=== PATIENT | female | born 1970 | race Caucasian/White ===

== ENCOUNTER → 2018-07-12 19:06 | Outpatient (CLI) | payer OTHER, MEDICAID, SELFPAY ==
--- NOTE | 2018-07-12 19:10 | DI.MRI.S_ITS ---
PROCEDURE: MR LUMBAR SPINE WO CON INDICATIONS: LOW BACK PAIN TECHNIQUE: Noncontrast sagittal T1 spin echo and T2 fast echo, sagittal STIR, axial T1 and T2 fast spin echo through the lumbar spine. In cases with scoliosis, additional coronal T2 fast spin echo may be performed. COMPARISON: [facility], MR, L-SPINE WITHOUT CONTRAST, 06/08/2017, 14:14. [facility], MR, L-SPINE WITHOUT CONTRAST, 04/07/2016, 13:03. FINDINGS: Image quality: Excellent. Alignment and Curvature: There is a 26? convex leftward bony malalignment, previously present. Bone Marrow: Marrow is of normal overall signal. No acute vertebral body compression fractures. What appears to be a small anterior superior endplate chronic compression fracture is again seen, with stable appearing 37% anterior height reduction at that site when compared to the level immediately below. Inferior tilt of the endplate also is associated, also stable over time. Spinal Cord: Conus medullaris terminates at the L1 level. Visualized cord demonstrates normal signal and size. Paraspinous Soft Tissues: No paravertebral masses. L1-L2: Normal appearance except for the angulation abnormality discussed above involving the upper endplate of L2, stable over time and likely representing an old mild upper endplate compression fracture. L2-L3: Mild degenerative disc height reduction and a small posterior disc bulge is present. There is minimal facet degeneration, and no spinal or foraminal stenosis. L3-L4: Mild degenerative disc height reduction, mild bilateral facet osteoarthritis without spinal or foraminal stenosis. L4-L5: Moderate degenerative disc height reduction and posterior disc bulge greater on the left than the right. Facet osteoarthritis also is more prominent, moderate in overall severity, with secondary foraminal stenosis that is mild to moderate in severity, with potential for mild impingement on the course of the L4 nerve roots equally. L5-S1: Moderate degenerative disc height reduction and slight posterior disc bulge at the midline. Facet osteoarthritis is greater on the left than the right. This results in moderate left and mild right foraminal stenosis and potential for asymmetric impingement on the course of the L5 nerve roots, left greater than right. IMPRESSION: No disc herniation is seen. The degenerative changes along the lumbosacral spine are relatively mild but facet osteoarthritis does become more prominent over the lower third of the LS spine. As noted there is potential for asymmetric left greater than right nerve root impingement at L5-S1 and mild symmetric impingement on individual nerve roots at L4-L5. Old stable appearing anterior superior endplate L2 compression fracture, present on the prior MR scanning from May 2017 and March 2016. No new spine injury is suspected. 26? convex leftward scoliosis centered at the L3 level of the lumbosacral spine, stable over time. Dictated by: John Malagon M.D. on 07/13/2018 at 16:32 Approved by: John Malagon M.D. on 07/13/2018 at 16:39
== END ==
PROVIDERS: Visit Provider Neurological Surgery
DX: M51.37 Other intervertebral disc degeneration, lumbosacral region (principal); M47.817 Spondylosis without myelopathy or radiculopathy, lumbosacral region; M41.87 Other forms of scoliosis, lumbosacral region; M54.5 Low back pain
CPT/HCPCS: 72148

== ENCOUNTER → 2021-05-16 11:10 | Outpatient (CLI) | payer OTHER, MEDICAID, SELFPAY ==
--- NOTE | 2021-05-16 11:29 | DI.RAD.S_ITS ---
PROCEDURE: XR CERVICAL SPINE 4V OR 5V INDICATIONS: progressive sciolisis TECHNIQUE: 5 views of the cervical spine were acquired. COMPARISON: None. FINDINGS: Bones: No fractures or dislocations to the C7 level. No suspicious bony lesions. There is normal range of motion between flexion and extension, with preserved normal bony alignment. [id number] degenerative disc disease is seen at C4-5, and to a slightly greater degree C5-6 and C6-7. Soft tissues: Prevertebral soft tissues are normal in thickness. IMPRESSION: Slight grade 1 anterolisthesis subluxation abnormality is found along the cervical spine at C4-C5, associated with [id number] degenerative disc disease from C4 through C7. Dictated by: John Malagon M.D. on 05/16/2021 at 13:32 Approved by: John Malagon M.D. on 05/16/2021 at 13:34
--- NOTE | 2021-05-16 11:29 | DI.RAD.S_ITS ---
PROCEDURE: XR LUMBAR SPINE 2-3V INDICATIONS: progressive scoliosis TECHNIQUE: 3 views of the lumbar spine were acquired. COMPARISON: [facility], YENIFER, XR SCOLIOSIS STUDY, 04/02/2018, 13:31. [facility], YENIFER, L-SPINE 2-3 VIEWS, 02/08/2016, 15:59. FINDINGS: Bones: 5 [id number] vertebrae are present. Prominent S-shaped scoliotic curvature with leftward curvature apex in the lumbar spine at L3. Lumbar scoliotic curvature measures approximately 37? compared to 33? on prior exam. Thoracic portion is not visualized in its entirety for direct comparison. Multilevel degenerative disc space narrowing is present, unchanged. Endplate deformity at L2 is stable. Multilevel foraminal narrowing moderate to severe is present from L2-3 through L5-S1, unchanged. No acute vertebral body compression fractures. No suspicious bony lesions. Soft tissues: Overlying bowel gas pattern is normal. No suspicious soft tissue calcifications. IMPRESSION: 1. Increased appearance of scoliotic curvature within the lumbar spine, as above. Dictated by: Samantha Ashford M.D. on 05/16/2021 at 16:05 Approved by: Samantha Ashford M.D. on 05/16/2021 at 16:14
--- NOTE | 2021-05-16 11:29 | DI.RAD.S_ITS ---
PROCEDURE: XR THORACIC SPINE 3V INDICATIONS: progressive sciolisis TECHNIQUE: 3 views of the thoracic spine were acquired. COMPARISON: None. FINDINGS: Bones: No fractures or dislocations. No suspicious bony lesions. 12 pairs of ribs are noted, and appear intact where visualized. Soft tissues: No paravertebral stripe thickening. IMPRESSION: Convex rightward scoliosis is present at the lower half of the thoracic spine. This measures 28.0 degrees by Arizmendi angle analysis. Mild midthoracic degenerative disc height reduction is incidentally noted. Dictated by: John Malagon M.D. on 05/16/2021 at 13:35 Approved by: John Malagon M.D. on 05/16/2021 at 13:37
== END ==
PROVIDERS: PCP Family Medicine; Referring Provider Family Medicine; Visit Provider Family Medicine
DX: M41.25 Other idiopathic scoliosis, thoracolumbar region (principal); M50.321 Other cervical disc degeneration at C4-C5 level
CPT/HCPCS: 72050; 72072; 72100

== ENCOUNTER → 2021-06-26 12:03 | Outpatient (CLI) | payer OTHER, MEDICAID, SELFPAY ==
--- NOTE | 2021-06-26 | DI.MRI.S_ITS ---
PROCEDURE: MR LUMBAR SPINE WO CON INDICATIONS: Other idiopathic scoliosis, thoracolumbar region TECHNIQUE: Noncontrast sagittal T1 spin echo and T2 fast echo, coronal T2, sagittal STIR, axial T1 and T2 fast spin echo through the lumbar spine. COMPARISON: [facility], MR, MR LUMBAR SPINE WO CON, 07/12/2018, 19:15. [facility], CR, L-SPINE 2-3 VIEWS, 02/08/2016, 15:59. FINDINGS: Image quality: Excellent. Alignment and Curvature: 5 lumbar type vertebral bodies are present by plain film. Moderate diffuse leftward curvature of the lumbar spine. Mild grade 1 retrolisthesis L2 on L3. Bone Marrow: Marrow is of normal overall signal. No acute vertebral body compression fractures. Moderate reactive signal within the endplates adjacent to the L5-S1 intervertebral disc. Mild chronic wedging of L2. Schmorl's node invaginate the superior L2 endplate. Mild reactive signal within the endplates adjacent to the T12-L1 intervertebral disc. Spinal Cord: Conus medullaris terminates at the L1-L2 disc space level. Visualized cord demonstrates normal signal and size. Paraspinous Soft Tissues: No paravertebral masses. T12-L1: Mild disc height loss and desiccation. Mild diffuse disc bulge. Mild facet and ligamentum flavum hypertrophy. Mild canal stenosis. Mild bilateral foraminal stenosis. No significant change. L1-L2: Mild disc height loss and desiccation. Mild diffuse disc bulge. Mild facet and ligamentum flavum hypertrophy. Mild canal stenosis. Mild bilateral foraminal stenosis. No significant change. L2-L3: Mild disc height loss and desiccation. Mild diffuse disc bulge. Mild facet and ligamentum flavum hypertrophy. Mild canal stenosis. Mild bilateral foraminal stenosis. No significant change. L3-L4: Mild disc height loss and desiccation. Mild diffuse disc bulge. Mild facet and ligamentum flavum hypertrophy. Mild canal stenosis. No foraminal stenosis. No significant change. L4-L5: Moderate disc height loss and desiccation. Mild diffuse disc bulge. Mild facet and ligamentum flavum hypertrophy. Mild epidural lipomatosis. Mild canal stenosis. Mild left foraminal stenosis. No right foraminal stenosis. No significant change. L5-S1: Moderate disc height loss and desiccation. Mild diffuse disc bulge with small superimposed broad-based left far lateral protrusion. Mild bilateral facet hypertrophy. Mild canal stenosis. Mild left foraminal stenosis. No right foraminal stenosis. No significant change. IMPRESSION: 1. Multilevel degenerative disc and facet disease, as well as ligamentum flavum hypertrophy and epidural lipomatosis. 2. Mild multilevel canal and foraminal stenoses as described above. No neural impingement. Dictated by: Sandra Palma M.D. on 06/26/2021 at 13:28 Approved by: Sandra Palma M.D. on 06/26/2021 at 13:32
== END ==
PROVIDERS: PCP Family Medicine; Referring Provider Family Medicine; Visit Provider Family Medicine
DX: M41.25 Other idiopathic scoliosis, thoracolumbar region (principal); M48.061 Spinal stenosis, lumbar region without neurogenic claudication; M48.07 Spinal stenosis, lumbosacral region; M51.36 Other intervertebral disc degeneration, lumbar region; M51.37 Other intervertebral disc degeneration, lumbosacral region; E88.2 Lipomatosis, not elsewhere classified
CPT/HCPCS: 72148

== ENCOUNTER → 2025-10-20 07:52 | Outpatient (CLI) | payer OTHER, SELFPAY ==
[2025-10-20 08:35] LABS: Add Manual Diff / Slide Review NO; Hematocrit 41.2 % (36-46); Hemoglobin 14.4 g/dL (12.0-16.0); Lymphocytes Absolute Auto 3000 /uL (1100-4500); Mean Corpuscular HGB Conc 34.9 % (30-36); Mean Corpuscular Hemoglobin 34.1 PG (26-34); Mean Corpuscular Volume 97.9 fL (80-100); Platelet Count 342 X10^3/uL (150-400)
[2025-10-20 09:19] LABS: Alanine Aminotransferase 22 IU/L (<35); Albumin 4.9 g/dL (3.5-5.0); Albumin Globulin Ratio 1.8 (1.0-2.8); Alkaline Phosphatase 65 U/L (38-126); Blood Urea Nitrogen 18 mg/dL (7-17); Calcium 10.0 mg/dL (8.4-10.2); Carbon Dioxide 28 mmol/L (22-32); Chloride 101 mmol/L (98-107); Cholesterol 282 mg/dL (140-199); Estimated Glomerular Filt Rate > 60 mL/min (>60); Globulin 2.7 g/dL (1.7-4.1); Glucose 86 mg/dL (70-99); HDL Cholesterol 84 mg/dL (40-60); HEMOLYSIS < 15 (0-50); Potassium 4.5 mmol/L (3.4-5.1); Sodium 137 mmol/L (137-145); Total Protein 7.6 g/dL (6.3-8.2); Triglycerides 141 mg/dL (35-150)
[2025-10-20 09:23] LABS: Hemoglobin A1C% w Est Avg Glu 5.2 % (4.0-6.0)
[2025-10-20 09:54] LABS: TSH w/ Reflex to FT4 1.19 uIU/mL (0.47-4.68)
[2025-10-20 10:30] LABS: Folate 9.7 ng/mL (2.76-20.0); Vitamin B12 252 pg/mL (239-931)
== END ==
PROVIDERS: PCP Family Medicine; Referring Provider Family Medicine; Visit Provider Family Medicine
DX: R76.89 Other specified abnormal immunological findings in serum (principal); E78.5 Hyperlipidemia, unspecified
CPT/HCPCS: 36415; 80053; 80061; 82607; 82746; 83036; 84443; 85025; 86038; 86200; 86430